=== PATIENT | female | born 1935 | race Caucasian/White ===

== ENCOUNTER 2016-07-26 06:15 | Inpatient (IN) ==
[2016-07-26] MEDS ORDERED: Ipratropium/Albuterol Neb 3 ML IH STA (06:27)
--- NOTE | 2016-07-26 06:29 | Emergency Department Note ---
Disposition Clinical Impression: Community acquired pneumonia Disposition: Admitted As Inpatient Condition: Undetermined Instructions: Community-acquired Pneumonia (ED) Referrals: Patrice Perez MD [Primary Care Provider] - Forms: ED Satisfaction Letter SOB HPI - General Chief Complaint: ED Shortness of Breath/Dyspnea Stated Complaint: cough and sore throat Source: patient Limitations: no limitations Nursing Notes Reviewed: Yes Vital Signs Reviewed: Yes - History of Present Illness Patient is an 81-year-old female who presents with 1-2 week history of cough and shortness of breath and productive green sputum. Complaining of a sore throat. Triage notes stating she has been coughing and having a sore throat for 3 days. In triage on room air her oxygen was 82% Pt Subjective Complaint: cough - Related Data Home Medications Medication Instructions Recorded Confirmed Ascorbic Acid [Vitamin C] 500 mg PO DAILY 02/06/15 07/26/16 Calcium Carbonate/Vitamin D3 1 tab PO DAILY 02/06/15 07/26/16 [Calcium 600 + Vitamin D Sftgl] Duloxetine HCl [Cymbalta] 60 mg PO DAILY 02/06/15 07/26/16 Esomeprazole Magnesium [Nexium] 40 mg PO DAILY 02/06/15 07/26/16 Gabapentin [Neurontin] 800 mg PO TID 02/06/15 07/26/16 Multivitamin [Multivitamins] 1 tab PO DAILY 02/06/15 07/26/16 Ropinerole [Requip] 1 mg PO HS 02/06/15 07/26/16 BuPROPion [Wellbutrin] 75 mg PO DAILY 12/11/15 07/26/16 Docusate Sodium [Dok] 100 mg PO DAILY PRN 12/11/15 07/26/16 HydrOXYzine Pamoate [Vistaril] 25 mg PO TID PRN 12/11/15 07/26/16 Polyethylene Glycol 3350 [MiraLAX] 17 gm PO BID PRN 12/11/15 07/26/16 TraZODone 50 mg PO HS 12/11/15 07/26/16 Aspirin 81 mg PO DAILY 03/24/16 07/26/16 Atorvastatin Calcium [Lipitor] 20 mg PO DAILY 03/24/16 07/26/16 Clobetasol Propionate [Temovate] 1 appl TP BID 09/14/16 01/16/17 Multivitamin [Multi-Day Vitamins] 1 tab PO DAILY 03/24/16 07/26/16 TraMADol [Ultram] 50 mg PO QID PRN 03/24/16 07/26/16 Triamcinolone Acet 0.1% CRM 1 appl TP BID 03/24/16 07/26/16 [Kenalog] Allergies Allergy/AdvReac Type Severity Reaction Status Date / Time codeine Allergy See Verified 03/24/16 07:52 Comments Sulfa (Sulfonamide Allergy See Verified 03/24/16 07:52 Antibiotics) Comments All systems ED: reviewed and negative except as stated. Past Medical History - Past Medical History Medical history: Reports: arthritis, GERD, GI bleed, peripheral artery disease Surgical history: Reports: angioplasty/stent, hysterectomy, splenectomy Psychiatric history: Reports: anxiety, depression - Social History Smoking Status: Former smoker Smokeless Tobacco Status: No Alcohol use: Reports: none Drug use: Reports: none Physical Exam - General Limitations: no limitations General appearance: alert - Head Head exam: atraumatic - Eye Eye exam: Present: normal appearance, PERRL - ENT ENT exam: normal exam - Neck Neck exam: Present: normal inspection - Chest Chest inspection: Present: normal inspection - Respiratory Respiratory exam: Present: wheezes (Wheeze right anterior lung) - Cardiovascular Cardiovascular exam: Present: tachycardia - Abdominal Exam Abdominal exam: Present: soft, Non-Tender - Extremities Exam Extremities exam: Present: normal inspection - Expanded Lower Extremity Exam Gait: observed and normal - Back Exam Back exam: Present: normal inspection - Neurological Exam Neurological exam: Present: alert, oriented X3, CN II-XII intact - Psychiatric Psychiatric exam: Present: normal affect - Skin Skin exam: Present: warm, dry Course Course Narrative: Patient's oxygen was 82% in triage went up into the mid 90s with 2 L oxygen per nasal cannula Vital Signs Temperature 98.7 F 07/26/16 06:17 Pulse Rate 117 07/26/16 06:17 Respiratory Rate 18 07/26/16 06:17 Blood Pressure 161/78 07/26/16 06:17 O2 Sat by Pulse Oximetry 82 L 07/26/16 06:17 Temperature 98.7 F 07/26/16 06:18 Pulse Rate 103 07/26/16 07:32 Respiratory Rate 18 07/26/16 07:32 Blood Pressure 128/66 07/26/16 07:32 O2 Sat by Pulse Oximetry 90 L 07/26/16 07:32 Oxygen Delivery Oxygen Delivery Nasal Cannula Shortness of Breath/Dyspnea - MDM Narrative Medical decision making narrative: Differential: Pneumonia versus congestive for failure - Lab Data Lab results reviewed: Yes I reviewed the patient's lab results. Result diagrams: 07/26/16 06:44 07/26/16 06:44 Lab Results 07/26/16 07/26/16 07/26/16 Range/Units 06:44 06:44 06:44 WBC 16.1 H (4.3-11.1) K/mcL RBC 4.06 (3.82-4.97) M/mcL Hgb 12.4 (11.5-15.4) g/dL Hct 37.9 (35.3-44.9) % MCV 93.3 (83.0-100.0) fL MCH 30.5 (28.0-33.3) pg MCHC 32.7 (31.6-35.5) g/dL RDW 13.5 (11.5-14.5) % Plt Count 263 (140-400) K/mcL MPV 12.6 H (9.4-12.4) fL Seg Neutrophils % 58.0 % Band Neutrophils % 12.0 H (0-4) % Lymphocytes % 14.0 % Monocytes % 16.0 % Neutrophils # 11.3 H (1.6-8.9) K/mcL Lymphocytes # 2.3 (0.6-4.6) K/mcL Monocytes # 2.6 H (0.0-1.3) K/mcL PT 13.8 H (9.4-12.1) Seconds INR 1.3 VBG Lactic Acid (0.5-2.2) mmol/L Sodium 138 (136-145) mEq/L Potassium 4.0 (3.5-4.5) mEq/L Chloride 98 (98-109) mEq/L Carbon Dioxide 27 (19-29) mEq/L BUN 21 H (7-20) mg/dL Creatinine 1.16 H (0.57-1.11) mg/dL Est GFR ( Amer) 54 L (> 60) Est GFR (Non-Af Amer) 45 L (> 60) BUN/Creatinine Ratio 18 (6-26) Glucose 189 H (70-99) mg/dL Calculated Osmolality 294 (280-300) Calcium 9.6 (8.6-10.8) mg/dL Total Bilirubin 0.5 (0.2-1.2) mg/dL AST 30 (5-34) Units/L ALT 22 (0-55) Units/L Alkaline Phosphatase 139 H (38-126) Units/L Troponin I (0-0.03) ng/mL B-Natriuretic Peptide (0-100) pg/mL Serum Total Protein 7.0 (6.0-8.3) g/dL Albumin 3.5 (3.5-5.0) g/dL Globulin 3.5 (2.4-3.5) g/dL Albumin/Globulin Ratio 1.0 L (1.1-2.2) 07/26/16 07/26/16 07/26/16 Range/Units 06:44 06:44 06:44 WBC (4.3-11.1) K/mcL RBC (3.82-4.97) M/mcL Hgb (11.5-15.4) g/dL Hct (35.3-44.9) % MCV (83.0-100.0) fL MCH (28.0-33.3) pg MCHC (31.6-35.5) g/dL RDW (11.5-14.5) % Plt Count (140-400) K/mcL MPV (9.4-12.4) fL Seg Neutrophils % % Band Neutrophils % (0-4) % Lymphocytes % % Monocytes % % Neutrophils # (1.6-8.9) K/mcL Lymphocytes # (0.6-4.6) K/mcL Monocytes # (0.0-1.3) K/mcL PT (9.4-12.1) Seconds INR VBG Lactic Acid 1.4 (0.5-2.2) mmol/L Sodium (136-145) mEq/L Potassium (3.5-4.5) mEq/L Chloride (98-109) mEq/L Carbon Dioxide (19-29) mEq/L BUN (7-20) mg/dL Creatinine (0.57-1.11) mg/dL Est GFR ( Amer) (> 60) Est GFR (Non-Af Amer) (> 60) BUN/Creatinine Ratio (6-26) Glucose (70-99) mg/dL Calculated Osmolality (280-300) Calcium (8.6-10.8) mg/dL Total Bilirubin (0.2-1.2) mg/dL AST (5-34) Units/L ALT (0-55) Units/L Alkaline Phosphatase (38-126) Units/L Troponin I 0.01 (0-0.03) ng/mL B-Natriuretic Peptide 116 H (0-100) pg/mL Serum Total Protein (6.0-8.3) g/dL Albumin (3.5-5.0) g/dL Globulin (2.4-3.5) g/dL Albumin/Globulin Ratio (1.1-2.2) - Radiology Data Radiology results reviewed: Yes I reviewed the patient's radiology results. ITS Impressions Chest X-Ray 07/26/16 06:24 IMPRESSION: 1. Right base airspace opacity. In the proper clinical setting, finding is compatible with pneumonia. Recommend follow-up chest radiograph 6-8 weeks post completion of treatment to ensure resolution. If finding persists at that time, CT of the chest would be recommended. 2. Emphysema. D/ / Rupesh Crouch MD / Rupesh Crouch MD Interpreting Provider: Rupesh Crouch MD - EKG Data EKG attestation: Yes I reviewed and interpreted this EKG. EKG shows normal: Reports: sinus rhythm Rate: Reports: normal Rhythm: Reports: NSR
[2016-07-26] MEDS ORDERED: Azithromycin 500 MG in D5% in Water 250 ML IVPB STA (06:40)
[2016-07-26] MEDS ORDERED: CefTRIAXone 1,000 MG in D5% in Water (Mini-Bag+) 100 ML IVPB STA (06:40)
[2016-07-26 07:06] LABS: Hematocrit 37.9 % (35.3-44.9); Hemoglobin 12.4 g/dL (11.5-15.4); Mean Corpuscular HGB Conc 32.7 g/dL (31.6-35.5); Mean Corpuscular Hemoglobin 30.5 pg (28.0-33.3); Mean Corpuscular Volume 93.3 fL (83.0-100.0); Mean Platelet Volume 12.6 fL (9.4-12.4); Platelet Count 263 K/mcL (140-400); Red Blood Count 4.06 M/mcL (3.82-4.97); Red Cell Distribution Width 13.5 % (11.5-14.5)
[2016-07-26 07:18] LABS: Albumin 3.5 g/dL (3.5-5.0); Bilirubin,Total 0.5 mg/dL (0.2-1.2); Calcium 9.6 mg/dL (8.6-10.8); Globulin 3.5 g/dL (2.4-3.5)
[2016-07-26 07:27] LABS: INR 1.3; Lymphocytes # 2.3 K/mcL (0.6-4.6); Monocytes # 2.6 K/mcL (0.0-1.3); Neutrophils # 11.3 K/mcL (1.6-8.9); Prothrombin Time 13.8 Seconds (9.4-12.1)
[2016-07-26] MEDS ORDERED: Ascorbic Acid 500 MG TABLET PO SCH (09:00)
[2016-07-26] MEDS ORDERED: CLOBETASOL PROPIONATE 15 GM TUBE TP SCH (09:00)
--- NOTE | 2016-07-26 10:21 | Electrocardiograph Report ---
[facility] Test Date: 2016-07-26 Pat Name: Kathelen Leong Department: [id number] Room: [facility] Gender: F Position Description Manager: [id number] : 1935 Requested By: Mateo Hare Order Number: [id number] Reading MD: Sid Ross MD Measurements Intervals [place] Rate: 94 P: 63 NM: 130 QRS: -37 QRSD: 86 T: 86 QT: 361 QTc: 413 Interpretive Statements SINUS RHYTHM MARKED LEFT AXIS DEVIATION Electronically Signed On 07-26-16 10:18:51 EST by Sid Ross MD
--- NOTE | 2016-07-26 14:44 | Internal Med History&Physical ---
Date of Encounter: 07/26/16 Time of Encounter: 14:10 Assessment and Plan (1) Community acquired pneumonia Current visit: Yes Status: Acute She was given Rocephin and Zithromax in the emergency room. We will continue these and add lactobacillus. Will repeat chest CT to follow-up on lung nodules seen on the March 2016 CT (2) CKD (chronic kidney disease) stage 3, GFR 30-59 ml/min Current visit: Yes Status: Chronic We will monitor renal indices periodically. (3) Lupus anticoagulant disorder Current visit: Yes Status: Chronic We will continue aspirin (4) Restless leg syndrome Current visit: Yes Status: Chronic Continue gabapentin Internal Medicine - H&P: HPI Chief complaint: Cough and dyspnea Admitted From: Home Plans for Post Hospital Care: Home History of present illness: Ms. Leong is a 81 year old female who came to the emergency room stating she had worsening cough over the preceding few days. Her son has been recently sick with bronchitis. He recommend she go to urgent care a few days earlier but she declined. She states she has been coughing up greenish sputum. She was evaluated in emergency room and felt to have right lower lobe pneumonia. She was admitted to [facility] floor for ongoing care needs. Her respiratory history is significant for having smoked from age [age] up to 2 packs per day. She denies a known diagnosis of COPD and does not wear home oxygen. She has not had PFTs or been tested for sleep apnea. She had chest CT done 04/01/2016 at [facility] for hemoptysis which showed partial collapse of the right middle lobe and underlying emphysema with indeterminate noncalcified pulmonary nodule seen. There was 8 mm nodules in the right lower lobe and in the left lower lobe. Follow-up CT was recommended in 3-6 months. She has not had a repeat CT done yet. Past Med Surg Social Fam HX - Past Medical History Medical history: arthritis, GERD, GI bleed, peripheral artery disease Psychiatric history: anxiety, depression - Past Surgical History Surgical History: angioplasty/stent, hysterectomy, splenectomy - Social History Smoking Status: Former smoker Smokeless Tobacco Status: No Alcohol use: none Drug use: none Internal Medicine - H&P: Meds Ascorbic Acid [Vitamin C] 500 mg PO DAILY 02/06/15 [History] Calcium Carbonate/Vitamin D3 [Calcium 600 + Vitamin D Sftgl] 1 tab PO DAILY [History] Duloxetine HCl [Cymbalta] 60 mg PO DAILY 02/06/15 [History] Esomeprazole Magnesium [Nexium] 40 mg PO DAILY 02/06/15 [History] Gabapentin [Neurontin] 800 mg PO TID 02/06/15 [History] Multivitamin [Multivitamins] 1 tab PO DAILY 02/06/15 [History] Ropinerole [Requip] 1 mg PO HS 02/06/15 [History] BuPROPion [Wellbutrin] 75 mg PO DAILY 12/11/15 [History] Docusate Sodium [Dok] 100 mg PO DAILY PRN 12/11/15 [History] HydrOXYzine Pamoate [Vistaril] 25 mg PO TID PRN 12/11/15 [History] Polyethylene Glycol 3350 [MiraLAX] 17 gm PO BID PRN 12/11/15 [History] TraZODone 50 mg PO HS 12/11/15 [History] Aspirin 81 mg PO DAILY 03/24/16 [History] Atorvastatin Calcium [Lipitor] 20 mg PO DAILY 03/24/16 [History] Clobetasol Propionate [Temovate] 1 appl TP BID 03/24/16 [History] Multivitamin [Multi-Day Vitamins] 1 tab PO DAILY 03/24/16 [History] TraMADol [Ultram] 50 mg PO QID PRN 03/24/16 [History] Triamcinolone Acet 0.1% CRM [Kenalog] 1 appl TP BID 03/24/16 [History] Allergies codeine Allergy (Verified 03/24/16 07:52) See Comments numbess Sulfa (Sulfonamide Antibiotics) Allergy (Verified 03/24/16 07:52) See Comments swelling All Systems PM: A 10-system review of systems was performed and is negative for pertinent findings except as documented above in the HPI. Review of systems: Gen.: She states her weight has been stable the past few months Cardiovascular: She denies hypertension PR heart failure angina DVT or pulmonary embolism. She has diagnoses of ASPVD and has peripheral arterial disease with bilateral common iliac stents in place. Respiratory: As per history of present illness GI: She had GI bleed 2014 with upper endoscopy and capsule endoscopy revealing no obvious bleeding source. A August 2015 EGD showed bleeding telangiectasias of the stomach treated with argon beam coagulation. Follow-up EGD December 2015 showed no further bleeding. She denies disorders of her liver gallbladder or exocrine pancreas. 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 She denied knowledge of this. She denies other kidney or bladder disorders. Neurologic: She has RLS. She denies large distribution strokes or seizures. Endocrine: She denies diabetes or thyroid disease. 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 She is being maintained on Rituxan. She has lupus anticoagulant. She denies internal malignancies. Psychiatric: She has a diagnosis of depression but denies anxiety or other mental health issues Musk skeletal: She has chronic low back pain. Denies gout or other bone joint or muscle disorders. - Constitutional Vitals: Temp Pulse Resp BP Pulse Ox 97.4 F L 89 16 136/52 93 L 07/26/16 10:38 07/26/16 10:38 07/26/16 10:38 07/26/16 10:38 07/26/16 10:38 Exam: Gen.: She is a well-developed well-nourished female who appears in mild to moderate respiratory distress HEENT: Head is atraumatic and normocephalic. Eyes: EOMI. There is no scleral icterus. Mouth: Mucosa is moist. Neck: Supple and nontender. There is no thyromegaly or adenopathy noted. Heart: Regular without murmurs gallops or ectopics. Lungs: She has prolonged expiratory phase. She has egophony in the left posterior lateral basilar area. Back: Straight without flank tenderness or presacral edema Abdomen: Soft and nontender. No masses or guarding are noted. Extremities: There is no cyanosis edema or clubbing noted. Dorsalis pedis and posterior tibial pulses are trace palpable bilaterally. Neurologic: Mental status: She is talkative and seems to be a good historian. Cranial nerves: Smile is symmetric. Forehead wrinkles bilaterally. Tongue protrudes midline. EOMI. Motor: There is no pronator drift. Cerebellar: Finger to nose is intact bilaterally. Skin: Warm and dry Internal Med - H&P Results - Labs CBC & Chem 7: 07/26/16 06:44 07/26/16 06:44
[2016-07-26] MEDS: Albuterol 2.5 MG/3 ML NEBULIZER IH PRN (15:56)
[2016-07-26] MEDS: Gabapentin 400 MG CAPSULE PO SCH ×3 (16:57→19:54)
[2016-07-26] MEDS: Aspirin 81 MG TAB.CHEW PO SCH (16:58)
[2016-07-26] MEDS: Multivit/Ca/Min/Fe/FA 1 TAB TABLET PO SCH (16:59)
[2016-07-26] MEDS: CLOBETASOL 0.05% CREAM TP SCH ×2 (17:00→20:04)
[2016-07-26] MEDS: Triamcinolone Acet 0.1% CRM 15 GM TUBE TP SCH ×2 (17:15→19:54)
[2016-07-26] MEDS: *HR* Enoxaparin 40 MG/0.4 ML SYRINGE SQ SCH (19:29)
[2016-07-26] MEDS: Lactobacillus 1 EACH CAP.SPRINK PO SCH (19:54)
[2016-07-27] MEDS: Albuterol 2.5 MG/3 ML NEBULIZER IH PRN (00:41)
[2016-07-27] MEDS: *HR* Enoxaparin 40 MG/0.4 ML SYRINGE SQ SCH (05:16)
[2016-07-27 07:26] LABS: Basophils # 0.1 K/mcL (0.0-0.2); Basophils % 0.4 %; Eosinophils # 0.5 K/mcL (0.0-0.6); Hematocrit 33.7 % (35.3-44.9); Hemoglobin 10.8 g/dL (11.5-15.4); Immature Granulocytes % 2.6 % (0-4); Lymphocytes # 0.9 K/mcL (0.6-4.6); Lymphocytes % 5.6 %; Mean Corpuscular Hemoglobin 30.3 pg (28.0-33.3); Mean Corpuscular Volume 94.7 fL (83.0-100.0); Mean Platelet Volume 12.4 fL (9.4-12.4); Monocytes # 1.8 K/mcL (0.0-1.3); Neutrophils # 12.7 K/mcL (1.6-8.9); Platelet Count 272 K/mcL (140-400); Red Blood Count 3.56 M/mcL (3.82-4.97); Red Cell Distribution Width 13.8 % (11.5-14.5); Segmented Neutrophils % 77.4 %
[2016-07-27] MEDS: Lactobacillus 1 EACH CAP.SPRINK PO SCH ×2 (08:28→19:50)
[2016-07-27] MEDS: Multivit/Ca/Min/Fe/FA 1 TAB TABLET PO SCH (08:28)
[2016-07-27] MEDS: Ascorbic Acid 500 MG TABLET PO SCH (08:29)
[2016-07-27] MEDS: CefTRIAXone 1,000 MG in D5% in Water (Mini-Bag+) 100 ML IVPB SCH (08:29)
[2016-07-27] MEDS: Gabapentin 400 MG CAPSULE PO SCH (08:29)
[2016-07-27] MEDS: Aspirin 81 MG TAB.CHEW PO SCH (08:29)
[2016-07-27] MEDS: Azithromycin 250 MG TABLET PO SCH (08:29)
[2016-07-27] MEDS: CLOBETASOL 0.05% CREAM TP SCH ×2 (08:30→21:54)
[2016-07-27] MEDS: Triamcinolone Acet 0.1% CRM 15 GM TUBE TP SCH ×2 (08:30→21:54)
[2016-07-27 09:19] LABS: Potassium 4.6 mEq/L (3.5-4.5)
--- NOTE | 2016-07-27 15:14 | Internal Med Progress Note ---
Date of Encounter: 07/27/16 Time of Encounter: 14:55 - Assessment and plan (1) Community acquired pneumonia Current Visit: Yes Status: Acute Assessment and plan: July 27. We will add Levaquin. Continue Rocephin and Zithromax and lactobacillus. (2) CKD (chronic kidney disease) stage 3, GFR 30-59 ml/min Current Visit: Yes Status: Chronic Assessment and plan: July 27. Renal indices have worsened. We will recheck in a.m. (3) Lupus anticoagulant disorder Current Visit: Yes Status: Chronic Assessment and plan: July 27. Continue aspirin (4) Restless leg syndrome Current Visit: Yes Status: Chronic Assessment and plan: July 27. Continue gabapentin but reduce dose because of renal insufficiency. - Subjective Interval history: July 27. She has no new complaints - Constitutional Vitals: Temp Pulse Resp BP Pulse Ox 97.6 F 68 16 104/65 93 L 07/27/16 10:29 07/27/16 10:29 07/27/16 10:29 07/27/16 10:29 07/27/16 10:29 Exam: She is resting comfortably in bed. She has minimal cough today. Her egophony has lessened. I reviewed her chest CT report with her. I reviewed her medications and lab results. Internal Medicine: Result - Labs CBC & Chem 7: 07/27/16 07:08 07/27/16 07:08 Labs: Short CBC 07/27/16 Range/Units 07:08 WBC 16.4 H (4.3-11.1) K/mcL Hgb 10.8 L D (11.5-15.4) g/dL Hct 33.7 L (35.3-44.9) % Plt Count 272 (140-400) K/mcL Neutrophils # 12.7 H (1.6-8.9) K/mcL BMP 07/27/16 07:08 Sodium 139 Potassium 4.6 H Chloride 99 Carbon Dioxide 29 BUN 31 H D Creatinine 1.91 H D Glucose 178 H Calcium 9.0 - ABG Interpretation ABG results: PT/INR, D-dimer PT 13.8 Seconds (9.4-12.1) H 07/26/16 06:44 Consult Discharge Plan - Plan Instructions: Community-acquired Pneumonia (ED)
[2016-07-27] MEDS ORDERED: *HR* Enoxaparin 30 MG/0.3 ML SYRINGE SQ SCH (15:17)
--- NOTE | 2016-07-27 18:37 | Electrocardiograph Report ---
[facility] Test Date: 2016-07-26 Pat Name: Kathleen Leong Department: [id number] Room: [facility] Gender: F Back Maker: Ruben : 1935 Requested By: Ruben Munson Order Number: [id number] Reading MD: Agustina Philippe Measurements Intervals [place] Rate: 90 P: 60 ME: 132 QRS: -37 QRSD: 86 T: 91 QT: 322 QTc: 370 Interpretive Statements SINUS RHYTHM MARKED LEFT AXIS DEVIATION NONSPECIFIC T-WAVE ABNORMALITY Electronically Signed On 07-27-16 18:35:50 EST by Agustina Philippe
[2016-07-27] MEDS: Gabapentin 100 MG CAPSULE PO SCH (19:50)
[2016-07-27] MEDS ORDERED: Gabapentin 400 MG CAPSULE PO SCH (21:00)
[2016-07-27] MEDS: *HR* HYDROcodone/Acet 5/325 mg TABLET PO PRN (22:15)
[2016-07-28 05:38] LABS: Basophils # 0.1 K/mcL (0.0-0.2); Basophils % 0.4 %; Eosinophils # 0.6 K/mcL (0.0-0.6); Eosinophils % 4.7 %; Hematocrit 32.4 % (35.3-44.9); Hemoglobin 10.6 g/dL (11.5-15.4); Immature Granulocytes % 2.7 % (0-4); Lymphocytes # 0.8 K/mcL (0.6-4.6); Lymphocytes % 6.6 %; Mean Corpuscular HGB Conc 32.7 g/dL (31.6-35.5); Mean Corpuscular Hemoglobin 30.6 pg (28.0-33.3); Mean Corpuscular Volume 93.6 fL (83.0-100.0); Mean Platelet Volume 12.2 fL (9.4-12.4); Monocytes # 1.2 K/mcL (0.0-1.3); Monocytes % 9.2 %; Neutrophils # 9.6 K/mcL (1.6-8.9); Platelet Count 295 K/mcL (140-400); Red Blood Count 3.46 M/mcL (3.82-4.97); Red Cell Distribution Width 13.9 % (11.5-14.5); Segmented Neutrophils % 76.4 %
[2016-07-28 05:54] LABS: Calcium 9.4 mg/dL (8.6-10.8); Potassium 4.6 mEq/L (3.5-4.5)
[2016-07-28] MEDS: Lactobacillus 1 EACH CAP.SPRINK PO SCH ×2 (10:34→20:49)
[2016-07-28] MEDS: Multivit/Ca/Min/Fe/FA 1 TAB TABLET PO SCH (10:34)
[2016-07-28] MEDS: Azithromycin 250 MG TABLET PO SCH (10:34)
[2016-07-28] MEDS: Aspirin 81 MG TAB.CHEW PO SCH (10:34)
[2016-07-28] MEDS: CefTRIAXone 1,000 MG in D5% in Water (Mini-Bag+) 100 ML IVPB SCH (10:35)
[2016-07-28] MEDS: Ascorbic Acid 500 MG TABLET PO SCH (10:35)
[2016-07-28] MEDS: Triamcinolone Acet 0.1% CRM 15 GM TUBE TP SCH ×2 (10:36→21:01)
[2016-07-28] MEDS: CLOBETASOL 0.05% CREAM TP SCH ×2 (10:36→21:01)
[2016-07-28] MEDS: *HR* HYDROcodone/Acet 5/325 mg TABLET PO PRN ×2 (10:40→20:48)
--- NOTE | 2016-07-28 10:56 | Internal Med Progress Note ---
Date of Encounter: 07/28/16 Time of Encounter: 10:25 - Assessment and plan (1) Community acquired pneumonia Current Visit: Yes Status: Acute Assessment and plan: July 27. We will add Levaquin. Continue Rocephin and Zithromax and lactobacillus. July 28. Continue Levaquin, Rocephin, Zithromax, and lactobacillus. WBC has improved (2) CKD (chronic kidney disease) stage 3, GFR 30-59 ml/min Current Visit: Yes Status: Chronic Assessment and plan: July 27. Renal indices have worsened. We will recheck in a.m. July 28. Renal indices have improved. Continue present regimen (3) Lupus anticoagulant disorder Current Visit: Yes Status: Chronic Assessment and plan: July 27. Continue aspirin (4) Restless leg syndrome Current Visit: Yes Status: Chronic Assessment and plan: July 27. Continue gabapentin but reduce dose because of renal insufficiency. - Subjective Interval history: July 27. She has no new complaints July 28. She has no new complaints but states she still does not feel well enough to go home. - Constitutional Vitals: Temp Pulse Resp BP Pulse Ox 98.2 F 90 18 129/63 94 L 07/28/16 07:38 07/28/16 07:38 07/28/16 07:38 07/28/16 07:38 07/28/16 07:38 Exam: She is lying in bed and appears slightly dyspneic. She coughed frequently during the visit. Her oxygen saturation was 95-97% on bedside monitoring. I reviewed her medications and lab results. Internal Medicine: Result - Labs CBC & Chem 7: 07/28/16 05:30 07/28/16 05:30 Labs: Short CBC 07/28/16 Range/Units 05:30 WBC 12.5 H (4.3-11.1) K/mcL Hgb 10.6 L (11.5-15.4) g/dL Hct 32.4 L (35.3-44.9) % Plt Count 295 (140-400) K/mcL Neutrophils # 9.6 H (1.6-8.9) K/mcL BMP 07/28/16 05:30 Sodium 138 Potassium 4.6 H Chloride 100 Carbon Dioxide 28 BUN 28 H Creatinine 1.21 H Glucose 177 H Calcium 9.4 - ABG Interpretation ABG results: PT/INR, D-dimer PT 13.8 Seconds (9.4-12.1) H 07/26/16 06:44 Consult Discharge Plan - Plan Instructions: Community-acquired Pneumonia (ED) Referrals: Patrice Perez MD [Primary Care Provider] - 1 week
[2016-07-28] MEDS: Albuterol 2.5 MG/3 ML NEBULIZER IH PRN ×3 (13:25→22:23)
[2016-07-28] MEDS: Gabapentin 100 MG CAPSULE PO SCH (20:48)
[2016-07-29] MEDS ORDERED: *HR* Enoxaparin 40 MG/0.4 ML SYRINGE SQ SCH (06:00)
[2016-07-29] MEDS: *HR* HYDROcodone/Acet 5/325 mg TABLET PO PRN (06:40)
[2016-07-29] MEDS: Azithromycin 250 MG TABLET PO SCH (08:54)
[2016-07-29] MEDS: Aspirin 81 MG TAB.CHEW PO SCH (08:55)
[2016-07-29] MEDS: Ascorbic Acid 500 MG TABLET PO SCH (08:55)
[2016-07-29] MEDS: Lactobacillus 1 EACH CAP.SPRINK PO SCH (08:55)
[2016-07-29] MEDS: Triamcinolone Acet 0.1% CRM 15 GM TUBE TP SCH (08:55)
[2016-07-29] MEDS: Multivit/Ca/Min/Fe/FA 1 TAB TABLET PO SCH (08:55)
[2016-07-29] MEDS: CLOBETASOL 0.05% CREAM TP SCH (08:55)
[2016-07-29] MEDS ORDERED: Cholecalciferol (D-3) 1,000 UNIT TABLET PO SCH (10:15)
--- NOTE | 2016-07-29 10:54 | Discharge Summary ---
Date of Encounter: 07/29/16 Time of Encounter: 09:55 - Discharge Diagnosis (1) Community acquired pneumonia Priority: Primary Status: Acute (2) CKD (chronic kidney disease) stage 3, GFR 30-59 ml/min Priority: Secondary Status: Chronic (3) Lupus anticoagulant disorder Priority: Secondary Status: Chronic (4) Restless leg syndrome Priority: Secondary Status: Chronic - Discharge Medications Prescriptions: Azithromycin [Zithromax] 250 mg PO Q24H #4 tablet Lactobacillus [Culturelle] 1 each PO BID #8 cap.sprink Levofloxacin [Levaquin] 500 mg PO DAILY #4 tablet Home Medications: Ascorbic Acid [Vitamin C] 500 mg PO DAILY 02/06/15 [History] Calcium Carbonate/Vitamin D3 [Calcium 600 + Vitamin D Sftgl] 1 tab PO DAILY [History] Duloxetine HCl [Cymbalta] 60 mg PO DAILY 02/06/15 [History] Esomeprazole Magnesium [Nexium] 40 mg PO DAILY 02/06/15 [History] Multivitamin [Multivitamins] 1 tab PO DAILY 02/06/15 [History] Ropinerole [Requip] 1 mg PO HS 02/06/15 [History] BuPROPion [Wellbutrin] 75 mg PO DAILY 12/11/15 [History] Docusate Sodium [Dok] 100 mg PO DAILY PRN 12/11/15 [History] HydrOXYzine Pamoate [Vistaril] 25 mg PO TID PRN 12/11/15 [History] Polyethylene Glycol 3350 [MiraLAX] 17 gm PO BID PRN 12/11/15 [History] TraZODone 50 mg PO HS 12/11/15 [History] Aspirin 81 mg PO DAILY 03/24/16 [History] Atorvastatin Calcium [Lipitor] 20 mg PO DAILY 03/24/16 [History] Clobetasol Propionate [Temovate] 1 appl TP BID 03/24/16 [History] Multivitamin [Multi-Day Vitamins] 1 tab PO DAILY 03/24/16 [History] TraMADol [Ultram] 50 mg PO QID PRN 03/24/16 [History] Triamcinolone Acet 0.1% CRM [Kenalog] 1 appl TP BID 03/24/16 [History] Azithromycin [Zithromax] 250 mg PO Q24H #4 tablet 07/29/16 [Rx] Gabapentin [Neurontin] 400 mg PO TID #0 07/29/16 [Rx] Lactobacillus [Culturelle] 1 each PO BID #8 cap.sprink 07/29/16 [Rx] Levofloxacin [Levaquin] 500 mg PO DAILY #4 tablet 07/29/16 [Rx] Allergies/Adverse Reactions: Allergies codeine Allergy (Verified 03/24/16 07:52) See Comments numbess Sulfa (Sulfonamide Antibiotics) Allergy (Verified 03/24/16 07:52) See Comments swelling Procedures/tests Complete & Pending: Procedures Performed prior 72 hours Category Date Time Status ECG 12 lead ECG [ECG] Routine Y 07/26/16 13:04 Completed Date of admission: 07/26/16 19:33 Primary care physician: Patrice Perez MD - Patient Status Disposition: Home, Self-Care Condition: Undetermined Overall status at discharge: patient is progressing back to baseline - Discharge Instructions Instructions: Community-acquired Pneumonia (ED) Follow Up With: Patrice Perez MD [Primary Care Provider] - 1 week - Diet and Activity Activity: resume usual activities as tolerated Diet: advance to your usual diet Hospital course: Ms. Leong is a 81 year old female who came to the emergency room stating she had worsening cough over the preceding few days. Her son has been recently sick with bronchitis. He recommend she go to urgent care a few days earlier but she declined. She states she has been coughing up greenish sputum. She was evaluated in emergency room and felt to have right lower lobe pneumonia. She was admitted to [facility] floor for ongoing care needs. Initial orders were written by the emergency room physician. I saw her on July 26 and performed a history and physical. She was started on Rocephin and Zithromax empirically in the emergency room. I added lactobacillus. A chest CT was ordered to follow-up on lung nodules seen on a March 2016 CT. There was bilateral infiltrates on the chest x-ray but no obvious nodules were reported. WBC had not improved by July 27 so I added Levaquin. WBC improved to 12.5 K by the following day. She will be continued on Zithromax and Levaquin for 4 additional days after discharge. Her renal indices remained stable with creatinine 1.21 and estimate her GFR 43 on the day prior to discharge. On Jigna 19 she stated she felt improved and stable for discharge home. I offered her staying another day and possibly receiving therapy in swing bed or SNF. She declined the offer. I also offered home health services but she declined stating her and she would manage at home. She will follow Dr. Patrice Perez within 1 week. Room air oximetry be checked on a 6 minute walk prior to discharge. - Time Spent with Patient Total time spent providing and/or coordinating discharge services: - Constitutional Vitals: Temp Pulse Resp BP Pulse Ox 98.1 F 94 18 137/64 93 L 07/29/16 07:00 07/29/16 07:00 07/29/16 07:00 07/29/16 07:00 07/29/16 07:00
[2016-07-29 11:14] VITALS: BP 97/58
[2016-07-29] MEDS: CefTRIAXone 1,000 MG in D5% in Water (Mini-Bag+) 100 ML IVPB SCH (13:06)
== END 2016-07-29 17:30 | disposition home or self-care (01) | DRG 194 ==
LOC: INPPIK 06:15 → EMEROOPIK 06:15 → INPPIK 08:25
PROVIDERS: ADMIT Internal Medicine; ATTEND Internal Medicine